=== PATIENT | female | born 1995 | race Caucasian/White ===

== ENCOUNTER 2025-04-14 08:07 | Outpatient (CLI) | payer MEDICAID ==
--- NOTE | 2025-04-14 18:45 | [facility] CONSULT REPORT ---
[facility] Procedure Note [facility] Procedure Note Consult [facility] Note # Demographics Type of EEG Read: - Routine EEG - video Patient Location: Outpatient First Name: KADE Last Name: MINNA Date of : 1995 Age: 29 Gender: Female Facility: [facility] Time of Initial Page (Horner ): 04/14/2025 09:22 Time of Return Call (Horner Time): 04/14/2025 09:22 # EEG Interpretation Start Time of EEG Read (): 04/14/2025 09:38 Stop Time of EEG Read (Horner ): 04/14/2025 09:57 Duration: 0h 19m Technical Details: - This study was recorded using the Seen EEG software Indication: - seizure # Description Photic Stimulation: Performed Hyperventilation: performed Phases Captured: - awake Symmetry: symmetric Posterior Dominant Rhythm: present, attenuates on eye opening Predominant Frequencies: - posterior dominant alpha (8-12 Hz) - continuous (>90%) Amplitude: normal Reactivity: yes Variability: yes # Abnormalities Stimulation: - photic stimulation does NOT cause abnormalities - hyperventilation does NOT cause abnormalities Epileptiform Abnormalities: - NOT present Focal Slowing: no Seizure: - NOT present # Impression Impression: normal # Clinical Correlation Clinical Correlation: A normal EEG does not exclude nor support the diagnosis of epilepsy. # Demographics First Name: KADE Last Name: MINNA Facility: [facility] [place] Neuro Consult Order placed for: Yes MERYL LEE MD Apr 14, 2025 18:45
== END 2025-04-14 23:59 | disposition home or self-care (01) ==
LOC: RAD 08:07
PROVIDERS: ATTEND Nurse Practitioner Family
DX: R56.9 Unspecified convulsions (principal)
CPT/HCPCS: 95816